=== PATIENT | male | born 1980 | race Caucasian/White ===

== ENCOUNTER 2017-03-22 15:32 | Emergency (ER) | payer BC, OTHER ==
[2017-03-22 15:37] VITALS: BP 103/58
[2017-03-22] MEDS ORDERED: Acetaminophen TAB* 325 MG PO ONE (15:57)
--- NOTE | 2017-03-22 16:33 | RAD ---
HISTORY: Right-sided headache COMPARISONS: None TECHNIQUE: Multiple contiguous axial CT scans were obtained of the head without intravenous contrast. FINDINGS: HEMORRHAGE/INFARCT: There is no hemorrhage or acute infarct. MASSES/SHIFT: There is no mass or shift. EXTRA-AXIAL SPACES: There are no extra-axial fluid collections. SULCI AND VENTRICLES: The sulci and ventricles are normal in size and position for the patient's stated age. CEREBRUM: There are no focal parenchymal abnormalities. BRAINSTEM: There are no focal parenchymal abnormalities. CEREBELLUM: There are no focal parenchymal abnormalities. VESSELS: The vessels are grossly normal. PARANASAL SINUSES: There is mucosal thickening of ethmoid air cells. There is an expansile erosive process centered within the right orbital apex that may extend into the sphenoid sinus. ORBITS: The orbits are unremarkable. BONES AND SOFT TISSUE: No bone or soft tissue abnormalities are noted. OTHER: None IMPRESSION: 1. THERE IS AN ILL-DEFINED EROSIVE PROCESS CENTERED AT THE RIGHT ORBITAL APEX THAT MAY BE RELATED TO THE SINUSES. THIS IS INCOMPLETELY EVALUATED ON THE CURRENT EXAMINATION. 2. RECOMMEND FURTHER EVALUATION WITH CONTRAST-ENHANCED CT OR CONTRAST-ENHANCED MRI OF THE FACE. 3. NO ACUTE INTRACRANIAL PATHOLOGY.
--- NOTE | 2017-03-22 17:03 | UC ---
Kris Solis Alok, scribed for Vic Menchaca MD on 03/22/17 at 1556 . Headache HPI - HPI Summary HPI Summary: 36M presents to the [facility] with a PEREZ beginning yesterday. Pt states his PEREZ has been worsening since yesterday, beginning as a mild PEREZ before spreading diffusely throughout the whole head in the span of an hour and is now localized near the right side sinus. At worst the pt states his PEREZ was a 10/10 yesterday and now it is at a 5/10. Pt states his PEREZ is worsened with movement. Pt took 800 mg iburprofen at 0900 this morning BATTERY TESTER with no alleviation. Pt also notes greenish rhinorrhea, eye drainage, and nausea. Pt denies fever or chills. Pt denies dental pain. Pt denies h/o sinus infections. - History Of Current Complaint Chief Complaint: UCHeadache Stated Complaint: SINUS PRESSURE/HEADACHE Time Seen by Provider: 03/22/17 15:44 Hx Obtained From: Patient Onset/Duration: Lasting Days, Still Present Onset Of Symptoms: Still Present Initially Headache Was: Mild Currently Pain Is: Moderate Pain Intensity: 5 Pain Scale Used: 0-10 Numeric Timing: Constant Character: Throbbing Location of Headache: Other: - right sinus Aggravating Factor: Nothing Allevating Factors: Nothing Associated Signs And Symptoms: Positive: Nausea, Sinus Pressure, Other (Noted In Comments) - rhinorrhea. Negative: Fever - Allergies/Home Medications Allergies/Adverse Reactions: Allergies Allergy/AdvReac Type Severity Reaction Status Date / Time No Known Allergies Allergy Verified 03/22/17 15:39 Home Medications: Home Medications Ibuprofen TAB* [Advil TAB*] 800 mg PO PRN 03/22/17 [History] PMH/Surg Hx/FS Hx/Imm Hx - Surgical History Surgical History: None - Family History Known Family History: Positive: Other - Yes- Bipolar, depression - Social History Occupation: Employed Full-time Lives: With Family Alcohol Use: None Substance Use Type: None Substance Use Comment - Amount & Last Used: 2013 completed drug rehab for heroin use Smoking Status (MU): Former Smoker Type: Cigarettes Amount Used/How Often: 1/2 ppd Have You Smoked in the Last Year: Yes Household Exposure Type: Cigarettes - Immunization History Most Recent Influenza Vaccination: 2014 Most Recent Tetanus Shot: 2014 Most Recent Pneumonia Vaccination: Unsure Review of Systems Constitutional: Negative Eyes: Drainage ENT: Nasal Discharge Gastrointestinal: Other - nausea Neurological: Headache All Other Systems Reviewed And Are Negative: Yes Physical Exam Triage Information Reviewed: Yes Appearance: Well-Appearing, No Pain Distress Vital Signs: Initial Vital Signs Temp 97.7 F 03/22/17 15:36 Pulse 74 03/22/17 15:36 Resp 16 03/22/17 15:36 BP 103/58 03/22/17 15:36 Pulse Ox 100 03/22/17 15:36 Vital Signs Reviewed: Yes Eyes: Positive: Other: - EOMI, ESME ENT Exam: Normal Neck: Positive: Supple, Nontender Respiratory: Positive: Lungs clear, Normal breath sounds Cardiovascular: Positive: RRR Abdomen Description: Positive: Nontender, Soft Bowel Sounds: Positive: Present Musculoskeletal Exam: Normal Musculoskeletal: Positive: Strength Intact, ROM Intact Neurological Exam: Normal Neurological: Positive: Other: - Alert & Oriented, Sensory/motor intact Psychological: Positive: Other: - affect/mood appropriate Skin: Positive: Other - warm, dry, reflects adequate perfusion Diagnostics - Laboratory Diagnostic Studies Completed/Ordered: Brain CT - IMPRESSION: 1. THERE IS AN ILL-DEFINED EROSIVE PROCESS CENTERED AT THE RIGHT ORBITAL APEX THAT MAY BE. RELATED TO THE SINUSES. THIS IS INCOMPLETELY EVALUATED ON THE CURRENT EXAMINATION. 2. RECOMMEND FURTHER EVALUATION WITH CONTRAST-ENHANCED CT OR CONTRAST-ENHANCED MRI OF THE. FACE. 3. NO ACUTE INTRACRANIAL PATHOLOGY. Headache Course/Dx - Course Course Of Treatment: Pt medications reviewed this visit. CT RESULTS DISCUSSED WITH PATIENT. DISCUSSED WITH DR ZHAO IN THE ED. PATIENT IS GOING TO THE ED BY POV, SIGNED THE AMA FORM. STABLE HERE, NO NEUROLOGIC DEFICIT. - Differential Dx/Diagnosis Provider Diagnoses: BRAIN/SINUS MASS AND HEADACHE - Physician Notifications Discussed Patient Care With: Joselito Zhao - Made aware of pt tranfer to ED Time Discussed With Above Provider: 16:59 Discharge - Discharge Plan Condition: Stable Disposition: AGAINST MEDICAL ADVICE Referrals: No Primary Care Phys,NOPCP [Primary Care Provider] - The documentation as recorded by the Kris garcias Alok accurately reflects the service I personally performed and the decisions made by me, Vic Menchaca MD.
== END 2017-03-22 17:05 | disposition left against medical advice (07) ==
LOC: UCEAST 15:32
DX: G93.9 Disorder of brain, unspecified (principal); R51 Headache; R11.0 Nausea; J34.89 Other specified disorders of nose and nasal sinuses; Z87.891 Personal history of nicotine dependence
CPT/HCPCS: 70450; 99212; A9270-GY; G0463

== ENCOUNTER 2017-03-22 17:40 | Emergency (ER) | payer OTHER ==
[2017-03-22] MEDS ORDERED: Amoxicillin/Clavulanate TAB* 875 MG PO ONE (20:45)
--- NOTE | 2017-03-22 21:03 | ED ---
Theodore Solis Benjamin, scribed for Calderon Johnson MD on 03/22/17 at 2044 . Headache - HPI Summary HPI Summary: 36yo male c/o severe PEREZ for a couple of days.Also reports sinus pressure. Pt went to and had a brain CT, which recommended further CT imaging with contrast. Pt states that his PEREZ has gotten better but is still present. - History Of Current Complaint Chief Complaint: EDHeadache Stated Complaint: HEADACHE/PRESSURE IN FACE Time Seen by Provider: 03/22/17 20:40 Hx Obtained From: Patient Onset/Duration: Started days ago, Still Present Initially Headache Was: Severe Currently Pain Is: Moderate Timing: Constant Location of Headache: Diffuse Aggravating Factor: Nothing Allevating Factors: Nothing Associated Signs And Symptoms: Sinus Pressure - Allergies/Home Medications Allergies/Adverse Reactions: Allergies Allergy/AdvReac Type Severity Reaction Status Date / Time No Known Allergies Allergy Verified 03/22/17 15:39 PMH/Surg Hx/FS Hx/Imm Hx Psychiatric History: Reports: Hx Depression, Hx Inpatient Treatment, Hx Community Mental Health Tx, Hx Substance Abuse Denies: Hx Eating Disorder, Hx of Violent Episodes Against Others Infectious Disease History: No Infectious Disease History: Denies: Hx Clostridium Difficile, Hx Hepatitis, Hx Human Immunodeficiency Virus (HIV), Hx of Known/Suspected MRSA, Hx Shingles, Hx Tuberculosis, Hx Known/ Suspected VRE, Hx Known/Suspected VRSA, History Other Infectious Disease, Traveled Outside the in Last 30 Days - Family History Known Family History: Positive: Other - Yes- Bipolar, depression - Social History Occupation: Employed Full-time Lives: With Family Alcohol Use: None Substance Use Type: Reports: None Substance Use Comment - Amount & Last Used: 2013 completed drug rehab for heroin use Smoking Status (MU): Former Smoker Type: Cigarettes Amount Used/How Often: 1/2 ppd Have You Smoked in the Last Year: Yes Review of Systems Constitutional: Negative Eyes: Negative ENT: Negative Cardiovascular: Negative Respiratory: Negative Gastrointestinal: Negative Genitourinary: Negative Musculoskeletal: Negative Skin: Negative Positive: Headache Psychological: Normal All Other Systems Reviewed And Are Negative: Yes Physical Exam Triage Information Reviewed: Yes Vital Signs On Initial Exam: Initial Vitals Temp Pulse Resp BP Pulse Ox 97.7 F 73 20 130/77 100 03/22/17 17:54 03/22/17 17:54 03/22/17 17:54 03/22/17 17:54 03/22/17 17:54 Vital Signs Reviewed: Yes Appearance: Positive: Well-Appearing, No Pain Distress Skin: Positive: Warm Head/Face: Positive: Normal Head/Face Inspection Eyes: Positive: EOMI, ESME ENT: Positive: Hearing grossly normal Neck: Positive: Supple Respiratory/Lung Sounds: Positive: Breath Sounds Present Cardiovascular: Positive: RRR Abdomen Description: Positive: Nontender, Soft Bowel Sounds: Positive: Present Musculoskeletal: Positive: Strength/ROM Intact Diagnostics - Vital Signs Vital Signs Temp Pulse Resp BP Pulse Ox 03/22/17 20:36 69 100 03/22/17 20:35 126/70 03/22/17 17:57 98.0 F 63 20 130/77 100 03/22/17 17:54 97.7 F 73 20 130/77 100 - Laboratory Result Diagrams: 03/22/17 21:05 03/22/17 21:05 Lab Statement: Any lab studies that have been ordered have been reviewed, and results considered in the medical decision making process. - CT Maxillofacial CT W CT Interpretation: Positive (See Comments) - IMPRESSION: 1. EXPANSILE LESION OF THE SPHENOID SINUS. THE DIFFERENTIAL INCLUDES MUCOCELE VERSUS SINONASAL POLYP. 2. FINDINGS SUGGESTIVE OF CHRONIC SINUSITIS. 3. RECOMMEND CONSIDERATION OF CORRELATION WITH DIRECT VISUALIZATION CT Interpretation Completed By: Radiologist Re-Evaluation - Re-Evaluation First Eval Change: Improved Headache Course/Dx - Diagnoses Provider Diagnoses: Sinusitis Discharge - Discharge Plan Condition: Stable Disposition: HOME Prescriptions: Amoxicillin/Clavulanate TAB* [Augmentin TAB 875*] 875 mg PO BID #14 tab Patient Education Materials: Sinusitis (ED) Referrals: No Primary Care Phys,NOPCP [Primary Care Provider] - Rodolfo Charles MD [Medical Doctor] - The documentation as recorded by the Theodore garcias Benjamin accurately reflects the service I personally performed and the decisions made by me, Calderon Johnson MD.
[2017-03-22 21:21] LABS: Hematocrit 42 % (42-52); Hemoglobin 14.1 g/dl (14.0-18.0); Mean Corpuscular HGB Conc 34 g/dl (31-36); Mean Corpuscular Hemoglobin 29 pg (27-31); Mean Corpuscular Volume 85 fL (80-94); Mean Platelet Volume 6 um3 (7.4-10.4); Red Blood Count 4.91 10^6/ul (4.0-5.4); Red Cell Distribution Width 13 % (10.5-15); White Blood Count 8.2 10^3/ul (3.5-10.8)
[2017-03-22 21:35] LABS: BUN/Creatinine Ratio 17.2 (8-20); EGFR African American 110.6 (>60); Potassium 4.3 mmol/L (3.5-5.0)
[2017-03-22] MEDS ORDERED: Iohexol 300* (CONTRAST) 10 ML SDV IV ONE (22:04)
--- NOTE | 2017-03-22 22:40 | RAD ---
HISTORY: Sinus lesion COMPARISONS: Head CT dated November 22, 2016 TECHNIQUE: Multiple contiguous axial CT scans were obtained of the face with intravenous contrast, with coronal and sagittal multiplanar reformations. FINDINGS: BONES: There is no displaced fracture or dislocation. The orbital rim is intact. The zygomatic arch is intact. The pterygoid plates are intact. ORBITS: The globes are round. The optic nerves are symmetric. The extraocular musculature is normal. There is no post septal or intraconal inflammatory change. There is no retrobulbar hematoma. PARANASAL SINUSES: There is opacification of the right maxillary sinus and anterior inferior ethmoid air cells. The right maxillary sinus is expanded. 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 There is elevation of the right inferior orbital wall. The lesion noted on the previous head CT examination appears to correspond to an opacified inferior orbital ethmoid air cell. BRAIN AND SOFT TISSUE: Unremarkable. OTHER: None. IMPRESSION: 1. EXPANSILE LESION OF THE SPHENOID SINUS. THE DIFFERENTIAL INCLUDES MUCOCELE VERSUS SINONASAL POLYP. 2. FINDINGS SUGGESTIVE OF CHRONIC SINUSITIS. 3. RECOMMEND CONSIDERATION OF CORRELATION WITH DIRECT VISUALIZATION
[2017-03-22 23:30] VITALS: BP 102/73
== END 2017-03-22 23:20 | disposition home or self-care (01) ==
LOC: ED 17:40
DX: J32.9 Chronic sinusitis, unspecified (principal); R51 Headache; Z87.891 Personal history of nicotine dependence
CPT/HCPCS: 36415; 70487; 80048; 85025; 99283; A9270-GY; Q9967

== ENCOUNTER 2023-12-14 20:59 | Inpatient (IN) ==
[2023-12-14 22:30] LABS: Urine Appearance Clear; Urine Bilirubin Negative (Negative); Urine Blood Negative (Negative); Urine Color Colorless; Urine Glucose Negative (Negative); Urine Ketones Negative (Negative); Urine Nitrite Negative (Negative); Urine Protein Negative (Negative); Urine Specific Gravity 1.007 (1.002-1.030); Urine Urobilinogen Negative (Negative); Urine pH 5.5 (5.0-8.0)
[2023-12-14 22:50] LABS: Urine Benzodiazepine Screen None Detected (None Detect); Urine Cannabinoids Screen None Detected (None Detect); Urine Opiates Screen None Detected (None Detect)
[2023-12-14 23:52] LABS: ABS Eosinophils 0.1 10^3/uL (0.0-0.5); ABS Lymphocytes 1.9 10^3/uL (1.0-4.8); ABS Monocytes 0.3 10^3/uL (0.0-1.1); ABS Neutrophils 2.8 10^3/uL (1.5-7.6); Eosinophil % 2.7 %; Hematocrit 38.4 % (38-53); Hemoglobin 13.2 g/dL (13.2-16.3); Lymphocyte % 37.4 %; Mean Corpuscular Hemoglobin 29.4 pg (27-33); Mean Corpuscular Hgb Conc 34.4 g/dL (31-36); Mean Corpuscular Volume 85.6 fL (80-97); Mean Platelet Volume 6.3 fL (7.5-11.2); Platelet Count 253 10^3/uL (150-450); Red Blood Count 4.49 10^6/uL (4.06-5.63); Red Cell Distribution Width 13.8 % (12-17); White Blood Count 5.2 10^3/uL (3.6-10.2)
[2023-12-15 00:49] LABS: ALT 23 U/L (7-52); AST 20 U/L (13-39); Acetaminophen < 15 mcg/mL; Albumin 4.3 g/dL (3.2-5.2); Albumin/Globulin Ratio 1.6 (1-3); Alcohol, S < 13 mg/dL (<13); Alkaline Phosphatase 88 U/L (35-149); Blood Urea Nitrogen 9 mg/dL (6-24); CO2 Carbon Dioxide 25 mmol/L (22-32); Calcium 9.6 mg/dL (8.6-10.3); Globulin 2.7 g/dL (2-4); Glucose 89 mg/dL (70-100); Salicylate < 2.50 mg/dL (<30); Total Bilirubin 0.4 mg/dL (0.2-1.0); eGFR CKD-EPI 113.3 (>60)
[2023-12-15 00:55] LABS: TSH Ultra Thyroid Stim Horm 3.35 mcIU/mL (0.34-5.60)
[2023-12-15 01:17] LABS: Anion Gap 9 mmol/L (2-16); Chloride 105 mmol/L (101-111); Potassium 4.3 mmol/L (3.5-5.0); Sodium 139 mmol/L (135-145)
[2023-12-15] MEDS: Buprenorp/Nalox 8-2 MG FILM SL ONE (03:23)
[2023-12-15] MEDS: Nicotine PATCH 14 MG/24 HR PATCH TRANSDERM ONE (08:21)
[2023-12-15] MEDS ORDERED: Al Hydrox/Mg Hydrox/Simet LIQ 30 ML UDC PO PRN (12:14)
[2023-12-15] MEDS: Nicotine PATCH 21 MG/24 HR PATCH TRANSDERM SCH (22:34)
[2023-12-16] MEDS: Vitamin THERAPEUTIC TAB PO SCH (07:33)
[2023-12-16 08:16] LABS: HDL Cholesterol 30.7 mg/dL
[2023-12-16 09:15] VITALS: BP 121/108
[2023-12-16] MEDS: Buprenorp/Nalox 8-2 MG FILM SL SCH (18:13)
[2023-12-17] MEDS: Nicotine GUM 2MG FRUIT FLAVOR PO PRN (11:49)
[2023-12-18] MEDS: Nicotine GUM 4MG FRUIT FLAVOR PO PRN (09:23)
== END 2023-12-18 16:34 | disposition home or self-care (01) | DRG 773 ==
LOC: ED 20:59 → EDHOLD 12-15 11:12 → BSU 12-15 11:23
PROVIDERS: ADMIT Psychiatry & Neurology Addiction Psychiatry; ATTEND Student in an Organized Health Care Education/Training Program